=== PATIENT | female | born 1950 | race Caucasian/White ===

== ENCOUNTER → 2021-06-30 | Outpatient (CLI) | payer OTHER ==
[~2021-06-30] MED LIST: ALDACTONE25 MG PO; ASPIRIN81 MG PO; BIOTIN300 MCG PO; ELIQUIS2.5 MG PO; GLUCOPHAGE XR500 MG PO; GLYNASE 3 MG TAB3 MG PO; LANTUS100 UNIT/1 SQ; LOPRESSOR 25 MG25 MG PO; LOPRESSOR50 MG PO; NEXIUM40 MG PO; ONE DAILY FOR1 EAC3 PO; PRINIVIL5 MG PO; VITAMIN C1000 M2 PO
== END ==
LOC: MAMO 08:16
DX: Z12.31 Encounter for screening mammogram for malignant neoplasm of breast (principal)
CPT/HCPCS: 77063; 77067